=== PATIENT | female | born 1950 | race Caucasian/White ===

== ENCOUNTER 2016-07-30 10:18 | Observation (INO) | payer MEDICARE, BC ==
--- NOTE | 2016-07-30 11:02 | EDM.PDOC ---
ED HPI GENERAL MEDICAL PROBLEM - General Chief Complaint: Chest Pain Stated Complaint: CHEST PAIN Time Seen by Provider: 07/30/16 10:40 Source of Information: Reports: Patient History Limitations: Reports: No Limitations - History of Present Illness INITIAL COMMENTS - FREE TEXT/NARRATIVE: History of present illness: [66-year-old female comes in complaining of chest pressure. Patient had a history of a pericardial effusion 2 years ago and she indicates that the pressure in her chest feels the same now.] Review of systems: As per history of present illness and below otherwise all systems reviewed and negative. Past medical history: As per history of present illness and as reviewed below otherwise noncontributory. Surgical history: As per history of present illness and as reviewed below otherwise noncontributory. Social history: No reported history of drug or alcohol abuse. Family history: As per history of present illness and as reviewed below otherwise noncontributory. Physical exam: HEENT: Atraumatic, normocephalic, pupils reactive, negative for conjunctival pallor or scleral icterus, mucous membranes moist, throat clear, neck supple, nontender, trachea midline. Lungs: Clear to auscultation, breath sounds equal bilaterally, chest nontender. Heart: S1S2, regular, negative for clicks, rubs, or JVD. Abdomen: Soft, nondistended, nontender. Negative for masses or hepatosplenomegaly. Negative for costovertebral tenderness. Pelvis: Stable nontender. Genitourinary: Deferred. Rectal: Deferred. Extremities: Atraumatic, negative for cords or calf pain. Neurovascular unremarkable. Neuro: Awake, alert, oriented. Cranial nerves II through XII unremarkable. Cerebellum unremarkable. Motor and sensory unremarkable throughout. Exam nonfocal. Patient's Global assessment is benign save that as subjective complaint as noted above. CT positive for pericardial effusion Dr. Benítez the floor helper consult and patient admitted to Dr. Rogers service Diagnostics: [CBC, CMP, troponin, chest x-ray, CT of chest without contrast] Therapeutics: [IV] Impression: [Pericardial effusion] Plan: [Admit] Definitive disposition and diagnosis as appropriate pending reevaluation and review of above. chest Pain Score (Numeric/FACES): 6 - Related Data Allergies Allergy/AdvReac Type Severity Reaction Status Date / Time ampicillin Allergy Diarrhea Verified 07/30/16 10:25 clindamycin Allergy Diarrhea Verified 07/30/16 10:25 sulfamethoxazole Allergy Diarrhea Verified 07/30/16 10:25 [From Bactrim] trimethoprim [From Bactrim] Allergy Diarrhea Verified 07/30/16 10:25 dye Allergy Diarrhea Uncoded 07/30/16 10:25 Home Meds: Home Meds Citalopram [Celexa] 20 mg PO DAILY 07/30/16 [History] Liraglutide [Victoza] 1.8 mg SUBCUT DAILY 07/30/16 [History] Losartan/Hydrochlorothiazide [Losartan-HCTZ 100-25 MG] 1 tab PO DAILY 07/30/16 [ History] Montelukast [Singulair] 10 mg PO BEDTIME 07/30/16 [History] Simvastatin [Zocor] 20 mg PO BEDTIME 07/30/16 [History] SitaGLIPtin [Januvia] 100 mg PO DAILY 07/30/16 [History] glyBURIDE [Glyburide] 5 mg PO DAILY 07/30/16 [History] Past Medical History HEENT History: Reports: Impaired Vision Other HEENT History: wears glasses Cardiovascular History: Reports: High Cholesterol, Hypertension, Other (See Below) Other Cardiovascular History: pericardial effussion [employer] History: Reports: Endocrine/Metabolic History: Reports: Diabetes, Type II - Past Surgical History GI Surgical History: Reports: Appendectomy, Hernia, Abdominal, Other (See Below) Other GI Surgeries/Procedures: explor lap Musculoskeletal Surgical History: Reports: Knee Replacement Social & Family History - Family History Family Medical History: Noncontributory - Tobacco Use Smoking Status *Q: Never Smoker - Caffeine Use Caffeine Use: Reports: Coffee Caffeine Use Comment: 4 cups daily - Recreational Drug Use Recreational Drug Use: No ED ROS GENERAL - Review of Systems Review Of Systems: See Below (History of present illness) ED EXAM, GENERAL - Physical Exam Exam: See Below (See history of present illness) Course - Vital Signs Last Recorded V/S: Last Vital Signs Temp 36.6 C 07/30/16 12:16 Pulse 83 07/30/16 12:50 Resp 16 07/30/16 12:50 BP 124/69 07/30/16 12:50 Pulse Ox 96 07/30/16 12:50 - Orders/Labs/Meds Orders: Active Orders 24 hr Category Date Time Status EKG 12 Lead [EKG Documentation Completion] [RC] STAT Care 07/30/16 11:26 Active Saline Lock Insert [OM.PC] Stat Oth 07/30/16 10:36 Ordered Labs: Laboratory Tests 07/30/16 07/30/16 07/30/16 Range/Units 10:45 10:45 10:45 WBC 8.21 (4.0-11.0) K/uL RBC 4.76 (4.30-5.90) M/uL Hgb 14.2 (12.0-16.0) g/dL Hct 43.2 (36.0-46.0) % MCV 90.8 (80.0-98.0) fL MCH 29.8 (27.0-32.0) pg MCHC 32.9 (31.0-37.0) g/dL RDW Std Deviation 44.5 (28.0-62.0) fl RDW Coeff of Cynthia 14 (11.0-15.0) % Plt Count 170 (150-400) K/uL MPV 11.40 (7.40-12.00) fL Neut % (Auto) 74.7 (48.0-80.0) % Lymph % (Auto) 16.4 (16.0-40.0) % Karnes % (Auto) 8.0 (0.0-15.0) % Eos % (Auto) 0.7 (0.0-7.0) % Baso % (Auto) 0.2 (0.0-1.5) % Neut # (Auto) 6.1 H (1.4-5.7) K/uL Lymph # (Auto) 1.4 (0.6-2.4) K/uL [place] # (Auto) 0.7 (0.0-0.8) K/uL Eos # (Auto) 0.1 (0.0-0.7) K/uL Baso # (Auto) 0.0 (0.0-0.1) K/uL Nucleated RBC % 0.0 /100WBC Nucleated RBCs # 0 K/uL Sodium 138 (136-146) mmol/L Potassium 4.1 (3.5-5.1) mmol/L Chloride 104 (98-110) mmol/L Carbon Dioxide 25 (21-31) mmol/L BUN 28 H (6.0-23.0) mg/dL Creatinine 1.2 (0.6-1.5) mg/dL Est Cr Clr Drug Dosing 38.66 mL/min Estimated GFR (MDRD) 45.1 ml/min Glucose 191 H (60-110) mg/dL Calcium 9.0 (8.8-10.8) mg/dL Total Bilirubin 1.0 (0.1-1.5) mg/dL AST 21 (5-40) IU/L ALT 18 (8-54) IU/L Alkaline Phosphatase 80 (40-150) Troponin I < 0.10 (0.0-0.29) NG/ML Total Protein 7.6 (6.0-8.0) g/dL Albumin 4.3 (3.4-4.8) g/dL Globulin 3.3 (2.0-3.5) g/dL Albumin/Globulin Ratio 1.3 (1.3-2.8) Amylase 74 (10-90) U/L Lipase 52 (7-80) U/L Departure - Departure Time of Disposition: 13:56 Disposition: Admitted As Inpatient 67 Condition: good Clinical Impression: Pericardial effusion Forms: ED Department Discharge - My Orders Last 24 Hours: My Active Orders 07/30/16 10:36 Saline Lock Insert [OM.PC] Stat - Assessment/Plan Last 24 Hours: My Active Orders 07/30/16 10:36 Saline Lock Insert [OM.PC] Stat
--- NOTE | 2016-07-30 11:16 | CR ---
EXAMINATION: Two-view chest (PA and Lateral views). HISTORY: Chest pain. FINDINGS: The trachea is midline. The cardiomediastinal silhouette is within normal limits. No pulmonary infil trates, effusions or pneumothorax. Osseous structures appear unremarkable. IMPRESSION: No acute cardiopulmonary process.
--- NOTE | 2016-07-30 12:41 | CT ---
EXAMINATION: CT chest without contrast HISTORY: Chest pain COMPARISON: Radiographs dated 07/30/2016 TECHNIQUE: Axial CT images obtained through the chest without contrast. Coronal and sagittal reconst ructions obtained. FINDINGS: The lungs are clear without focal consolidation. No pleural effusion or pneumothorax. The heart is normal in size with a small pericardial effusion. No mediastinal lymphadenopathy or hilar f ullness. No axillary lymphadenopathy. There is a small hiatal hernia. Thoracic aorta is normal in ca liber. The central airways are clear. The liver demonstrates a nodular contour. Several prominent left renal cysts are noted. No suspicious osseous abnormalities identified. IMPRESSION: 1. Small pericardial effusion. 2. Otherwise no acute cardiopulmonary findings. 3. Nodular hepatic contour, correlate clinically for cirrhosis. 4. Prominent left renal cysts. 5. Small hiatal hernia.
[2016-07-30] MEDS ORDERED: Acetaminophen 325 MG Tab PO PRN (14:58)
--- NOTE | 2016-07-30 15:46 | PCM.HP ---
H&P History of Present Illness - General Date of Service: 07/30/16 Admit Problem/Dx: Admission Diagnosis/Problem Admission Diagnosis/Problem Pericardial effusion Source of Information: Patient History Limitations: Reports: No Limitations - History of Present Illness Initial Comments - Free Text/Narative: This 66 year old female with pmh of HTN, DM type 2, hyperlipidemia, and hx or pericarditis 2 years ago presented to the ED with complaints of 2 weeks of midsternal chest pressure and stabbing like pain. She reports she let this go because it felt like her pericarditis prior and thought the pain would eventually subside. This pain is a 5-6/10 intermittently worsens with taking deep breaths, it radiates to her back and left shoulder. She denies diaphoresis , nausea or vomiting. No palpitations. No recent illness or fevers at home. She reports taking aspirin at home has helped with the pain otherwise rest is the only other relieving factor. It hurts worse why lying back or changing positions. Some relief with leaning forward. She has been compliant with medications. She reports when she had pericarditis 2 years ago, she also had small amount of fluid around her heart then. She reports never following up again. In the ED CBC WNL, BUN 28, Cr 1.2, Troponin negative. Amylase and lipase normal. CXR negative. CT chest reports small pericardial effusion. HR 70s and BP 120-130/60-80s in ED. EKG no ST elevation noted, SR 70s. chest Pain Score (Numeric/FACES): 6 - Related Data Allergies/Adverse Reactions: Allergies Allergy/AdvReac Type Severity Reaction Status Date / Time ampicillin Allergy Diarrhea Verified 07/30/16 10:25 clindamycin Allergy Diarrhea Verified 07/30/16 10:25 sulfamethoxazole Allergy Diarrhea Verified 07/30/16 10:25 [From Bactrim] trimethoprim [From Bactrim] Allergy Diarrhea Verified 07/30/16 10:25 dye Allergy Diarrhea Uncoded 07/30/16 10:25 Home Medications: Home Meds Citalopram [Celexa] 20 mg PO DAILY 07/30/16 [History] Liraglutide [Victoza] 1.8 mg SUBCUT DAILY 07/30/16 [History] Losartan/Hydrochlorothiazide [Losartan-HCTZ 100-25 MG] 1 tab PO DAILY 07/30/16 [ History] Montelukast [Singulair] 10 mg PO BEDTIME 07/30/16 [History] Simvastatin [Zocor] 20 mg PO BEDTIME 07/30/16 [History] SitaGLIPtin [Januvia] 100 mg PO DAILY 07/30/16 [History] glyBURIDE [Glyburide] 5 mg PO DAILY 07/30/16 [History] Past Medical History HEENT History: Reports: Impaired Vision Other HEENT History: wears glasses Cardiovascular History: Reports: High Cholesterol, Hypertension, Other (See Below). Denies: Afib, Heart Failure, PA Other Cardiovascular History: pericardial effusion and pericarditis Respiratory History: Reports: None. 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 Denies: Hypothyroidism - Infectious Disease History Infectious Disease History: Reports: Chicken Pox - Past Surgical History GI Surgical History: Reports: Appendectomy, Hernia, Abdominal, Other (See Below) Other GI Surgeries/Procedures: explor lap Musculoskeletal Surgical History: Reports: Hip Replacement, Knee Replacement Social & Family History - Family History Family Medical History: Noncontributory - Tobacco Use Smoking Status *Q: Never Smoker - Caffeine Use Caffeine Use: Reports: Coffee Caffeine Use Comment: 4 cups daily - Alcohol Use Days Per Week of Alcohol Use: 2 Number of Drinks Per Day: 1 Total Drinks Per Week: 2 Alcohol Use Frequency: Weekly - Recreational Drug Use Recreational Drug Use: No - Living Situation & Occupation Living situation: Reports: Occupation: Employed H&P Review of Systems - Review of Systems: Review Of Systems: See Below General: Reports: No Symptoms. Denies: Fever, Chills, Malaise, Diaphoresis HEENT: Reports: No Symptoms. Denies: Headaches, Sinus Congestion, Vertigo Pulmonary: Reports: No Symptoms. Denies: Shortness of Breath, Wheezing, Cough, Sputum Cardiovascular: Reports: Chest Pain. Denies: Palpitations, Edema Gastrointestinal: Reports: No Symptoms. Denies: Abdominal Pain, Black Stool, Bloody Stool, Nausea, Vomiting Genitourinary: Reports: No Symptoms. Denies: Dysuria, Frequency, Burning Musculoskeletal: Reports: No Symptoms. Denies: Neck Pain Skin: Reports: No Symptoms Neurological: Reports: No Symptoms Immunologic: Reports: No Symptoms Exam - Exam Exam: See Below - Vital Signs Vital Signs: Last Vital Signs Temp 97.9 F 07/30/16 12:16 Pulse 80 07/30/16 14:36 Resp 16 07/30/16 14:36 BP 130/79 07/30/16 14:36 Pulse Ox 94 L 07/30/16 14:36 Weight: 82.146 kg - Exam Quality Assessment: No: Supplemental Oxygen General: Alert, Oriented, Cooperative HEENT: Conjunctiva Clear, Hearing Intact, Mucosa Moist & [place], Posterior Pharynx Clear Neck: Supple, Trachea Midline. No: Lymphadenopathy Lungs: Clear to Auscultation, Normal Respiratory Effort Cardiovascular: Regular Rate, Regular Rhythm, Rubs Extremities: 3, Normal Inspection, 10 Neuro Extensive - Mental Status: Alert, Oriented x3, Normal Mood/Affect, Normal Cognition Neuro Extensive - Motor, Sensory, Reflexes: CN II-XII Intact, Normal Gait Psychiatric: Alert, Normal Affect, Normal Mood - Patient Data Result Diagrams: 07/30/16 10:45 07/30/16 10:45 *Q Meaningful Use (ADM) - VTE *Q VTE Criteria *Q: - Stroke *Q Stroke Criteria *Q: - AMI *Q AMI Criteria *Q: - Problem List (1) Pericardial effusion SNOMED Code(s): 882254418 ICD Code: I31.3 - PERICARDIAL EFFUSION (NONINFLAMMATORY) Status: Acute Current Visit: Yes (2) HTN (hypertension) SNOMED Code(s): 44191100 ICD Code: I10 - ESSENTIAL (PRIMARY) HYPERTENSION Status: Chronic Current Visit: Yes Qualifiers: Hypertension type: essential hypertension Qualified Code(s): I10 - Essential (primary) hypertension (3) DM type 2 (diabetes mellitus, type 2) SNOMED Code(s): 22016375 ICD Code: E11.9 - TYPE 2 DIABETES MELLITUS WITHOUT COMPLICATIONS Status: Chronic Current Visit: Yes Qualifiers: Diabetes mellitus complication status: with kidney complications Diabetes mellitus complication detail: with nephropathy Diabetes mellitus care home insulin use: without care home use Qualified Code(s): E11.21 - Type 2 diabetes mellitus with diabetic nephropathy (4) Hyperlipidemia SNOMED Code(s): 65122868 ICD Code: E78.5 - HYPERLIPIDEMIA, UNSPECIFIED Status: Chronic Current Visit: Yes Qualifiers: Hyperlipidemia type: unspecified Qualified Code(s): E78.5 - Hyperlipidemia , unspecified Problem List Initiated/Reviewed/Updated: Yes Orders Last 24hrs: Active Orders 24 hr Category Date Time Status Patient Status [ADT] Routine ADT 07/30/16 14:57 Active Antiembolic Devices [RC] PER UNIT ROUTINE Care 07/30/16 14:59 Active Intake and Output [RC] QSHIFT Care 07/30/16 14:59 Active Notify Provider Consults [RC] ASDIRECTED Care 07/30/16 15:02 Active Oxygen Therapy [RC] PRN Care 07/30/16 14:58 Active Telemetry Monitoring [Cardiac Monitoring] [RC] . Care 07/30/16 15:14 Active DIRECTED Up With Assistance [RC] ASDIRECTED Care 07/30/16 14:58 Active VTE/DVT Education [RC] PER UNIT ROUTINE Care 07/30/16 14:58 Active Vital Signs [RC] Q4H Care 07/30/16 14:58 Active Consult to Physician [CONS] Routine Cons 07/30/16 14:58 Active [place] [employer] Diet [DIET] Diet 07/30/16 Dinner Active Echo 2D wo Cont [US] Urgent Exams 07/30/16 14:58 Ordered TROPONIN I [CHEM] Q6H Lab 07/30/16 16:45 Ordered TROPONIN I [CHEM] Q6H Lab 07/30/16 22:45 Ordered Acetaminophen [Tylenol] Med 07/30/16 14:58 Active 650 mg PO Q4H PRN Sequential Compression Device [OM.PC] Per Unit Routine Oth 07/30/16 14:59 Ordered Resuscitation Status Routine Resus Stat 07/30/16 14:58 Ordered Medication Orders Acetaminophen (Tylenol) 650 mg PO Q4H PRN PRN Reason: Pain Last Admin: 07/30/16 15:26 Dose: 650 mg Assessment/Plan Comment:: This 66 year old female admitted with pericarditis with pericardial effusion 1.Pericarditis with effusion: Consulted Dr. Alvarenga for recommendations. Will obtain ESR and CRP as well as ECHO. Monitor on telemetry and serial troponins. Analgesia PRN. Will plan to start an NSAIDs after consultation with Dr. Alvarenga. 2. HTN: Continue home medications 3. DM type 2: Will monitor BS TIDAC and Novolog SSI. Will hold oral medications. VTE prophylaxis: SCDs Dispo: 1-2 days pending improvement
[2016-07-30] MEDS ORDERED: Morphine 2 MG/ML Syringe IVPUSH PRN (15:48)
[2016-07-30] MEDS: Insulin Aspart 100 Units/ML 3 ML Pen SUBCUT SCH (17:25)
[2016-07-30] MEDS: Ibuprofen 600 MG Tab PO SCH (20:52)
[2016-07-30] MEDS: Colchicine 0.6 MG Tab PO SCH (20:53)
[2016-07-30] MEDS ORDERED: Montelukast 10 MG Tab PO SCH (21:00)
[2016-07-30] MEDS ORDERED: Simvastatin 20 MG Tab PO SCH (21:00)
[2016-07-30] MEDS ORDERED: Citalopram 20 MG Tab PO SCH ×2 (21:00)
[2016-07-31] MEDS: Ibuprofen 600 MG Tab PO SCH (04:29)
[2016-07-31] MEDS: Insulin Aspart 100 Units/ML 3 ML Pen SUBCUT SCH (07:23)
[2016-07-31 08:52] VITALS: BP 115/70
[2016-07-31] MEDS ORDERED: Citalopram 20 MG Tab PO SCH (09:00)
[2016-07-31] MEDS ORDERED: Hydrochlorothiazide/Losartan 12.5-50 mg Tab PO SCH (09:00)
--- NOTE | 2016-07-31 09:22 | PCM.DCSUM1 ---
Discharge Summary - Hospital Course Brief History: This 66 year old female with pmh of HTN, DM type 2, hyperlipidemia, and hx or pericarditis 2 years ago presented to the ED with complaints of 2 weeks of midsternal chest pressure and stabbing like pain. She reports she let this go because it felt like her pericarditis prior and thought the pain would eventually subside. This pain is a 5-6/10 intermittently worsens with taking deep breaths, it radiates to her back and left shoulder. She denies diaphoresis, nausea or vomiting. No palpitations. No recent illness or fevers at home. She reports taking aspirin at home has helped with the pain otherwise rest is the only other relieving factor. It hurts worse why lying back or changing positions. Some relief with leaning forward. She has been compliant with medications. She reports when she had pericarditis 2 years ago, she also had small amount of fluid around her heart then. She reports never following up again. In the ED CBC WNL, BUN 28, Cr 1.2, Troponin negative. Amylase and lipase normal. CXR negative. CT chest reports small pericardial effusion. HR 70s and BP 120-130/60-80s in ED. EKG no ST elevation noted, SR 70s. - Discharge Data Discharge Date: 07/31/16 Discharge Disposition: Home, Self-Care 01 Condition: Stable - Discharge Diagnosis/Problem(s) (1) Pericardial effusion SNOMED Code(s): 812846036 ICD Code: I31.3 - PERICARDIAL EFFUSION (NONINFLAMMATORY) Status: Acute Current Visit: Yes (2) HTN (hypertension) SNOMED Code(s): 67747508 ICD Code: I10 - ESSENTIAL (PRIMARY) HYPERTENSION Status: Chronic Current Visit: Yes Qualifiers: Hypertension type: essential hypertension Qualified Code(s): I10 - Essential (primary) hypertension (3) DM type 2 (diabetes mellitus, type 2) SNOMED Code(s): 55140864 ICD Code: E11.9 - TYPE 2 DIABETES MELLITUS WITHOUT COMPLICATIONS Status: Chronic Current Visit: Yes Qualifiers: Diabetes mellitus complication status: with kidney complications Diabetes mellitus complication detail: with nephropathy Diabetes mellitus alf insulin use: without alf use Qualified Code(s): E11.21 - Type 2 diabetes mellitus with diabetic nephropathy (4) Hyperlipidemia SNOMED Code(s): 81116483 ICD Code: E78.5 - HYPERLIPIDEMIA, UNSPECIFIED Status: Chronic Current Visit: Yes Qualifiers: Hyperlipidemia type: unspecified Qualified Code(s): E78.5 - Hyperlipidemia , unspecified - Patient Summary/Data Consults: Consultations 07/30/16 14:58 Consult to Physician [CONS] Routine - Discharge Plan Prescriptions/Med Rec: Colchicine [Colcrys] 0.6 mg PO BID #180 tablet Ibuprofen [IJD: Ibuprofen] 600 mg PO Q8H #42 tablet Home Medications: Home Meds Citalopram [Celexa] 20 mg PO DAILY 07/30/16 [History] Liraglutide [Victoza] 1.8 mg SUBCUT DAILY 07/30/16 [History] Losartan/Hydrochlorothiazide [Losartan-HCTZ 100-25 MG] 1 tab PO DAILY 07/30/16 [ History] Montelukast [Singulair] 10 mg PO BEDTIME 07/30/16 [History] Omeprazole 20 mg PO DAILY 07/30/16 [History] Simvastatin [Zocor] 20 mg PO BEDTIME 07/30/16 [History] SitaGLIPtin [Januvia] 100 mg PO DAILY 07/30/16 [History] glyBURIDE [Glyburide] 5 mg PO DAILY 07/30/16 [History] Colchicine [Colcrys] 0.6 mg PO BID #180 tablet 07/31/16 [Rx] Ibuprofen [IJD: Ibuprofen] 600 mg PO Q8H #42 tablet 07/31/16 [Rx] Patient Handouts: Pericardial Effusion, Chest Wall Pain, [id number] Referrals: Alvarado Alvarenga MD [Physician] - 08/07/16 1:00 pm - Discharge Summary/Plan Comment DC Time >30 min.: No Discharge Summary/Plan Comment: Discharge diagnoses: Pericarditis HTN DM type 2 Hx pericarditis with pericardial effusion Sherice was admitted for observation due to chest pain. ACS ruled out with negative serial troponins. ECHo completed which did not show a pericardial effusion, LV EF 65%. She was treated with NSAIDs, Ibuprofen and Colchicine. Dr. Alvarenga was consulted and visited with patient. Today she is feeling much better, chest pain is near gone. We will continue with Ibuprofen 600 mg TID for 2 weeks and Colchicine 0.6 mg BID for 3 months. I will arrange follow up with Dr. Alvarenga in 1 week as well as have her obtain labwork at that time due to elevated BUN/Cr and starting NSAIDS. She is to continue taking all home medications as previously prescribed. She is encouraged to return to the ED or clinic if concerns should arise. No strenuous activity. - General Info Date of Service: 07/31/16 Admission Dx/Problem (Free Text: Admission Diagnosis/Problem Admission Diagnosis/Problem Pericardial effusion Subjective Update: Doing well this morning. Denies chest pain and is very eager for discharge today. Functional Status: Reports: pain controlled, tolerating diet, ambulating, urinating - Review of Systems General: Reports: No Symptoms. Denies: Fever, Fatigue, Malaise HEENT: Reports: no symptoms. Denies: sinus congestion, sore throat Pulmonary: Reports: no symptoms. Denies: shortness of breath, cough, sputum Cardiovascular: Denies: No Symptoms, Chest Pain, Palpitations, Edema Gastrointestinal: Reports: No symptoms. Denies: Abdominal pain, Nausea, Vomiting - Patient Data Vitals - Most Recent: Last Vital Signs Temp 97.0 F 07/31/16 08:00 Pulse 70 07/31/16 08:00 Resp 18 07/31/16 08:00 BP 115/70 07/31/16 08:00 Pulse Ox 90 L 07/31/16 08:00 Weight - Most Recent: 82.146 kg I&O - Last 24 hours: Intake & Output 07/30/16 07/31/16 07/31/16 22:59 06:59 14:59 Intake Total 100 600 Output Total 150 1100 Balance -50 -500 Lab Results - Last 24 hrs: Laboratory Results - last 24 hr 07/30/16 07/30/16 07/31/16 Range/Units 17:19 22:38 06:43 POC Glucose 189 H (60-110) mg/dL Troponin I < 0.10 < 0.10 (0.0-0.29) NG/ML Med Orders - Current: Current Medications Acetaminophen (Tylenol) 650 mg PO Q4H PRN PRN Reason: Pain Last Admin: 07/30/16 15:26 Dose: 650 mg Citalopram Hydrobromide (Celexa) 20 mg PO BEDTIME YESSI Last Admin: 07/30/16 20:52 Dose: 20 mg Colchicine (Colcrys) 0.6 mg PO BID [facility] Last Admin: 07/30/16 20:53 Dose: 0.6 mg HCTZ/Losartan Potassium (Hyzaar 50-12.5 Mg) 2 tab PO DAILY [facility] Ibuprofen (Motrin) 600 mg PO Q8H [facility] Last Admin: 07/31/16 04:29 Dose: 600 mg Insulin Aspart (Novolog) 0 unit SUBCUT TIDAC [facility] PRN Reason: Protocol Last Admin: 07/31/16 07:23 Dose: 1 units Montelukast Sodium (Singulair) 10 mg PO BEDTIME [facility] Last Admin: 07/30/16 20:52 Dose: 10 mg Morphine Sulfate (Morphine) 2 mg IVPUSH Q4H PRN PRN Reason: Chest Pain Simvastatin (Zocor) 20 mg PO BEDTIME [facility] Last Admin: 07/30/16 20:52 Dose: 20 mg Discontinued Medications Citalopram Hydrobromide (Celexa) 20 mg PO DAILY [facility] Citalopram Hydrobromide (Celexa) 20 mg PO DAILY [facility] - Exam General: Reports: alert, oriented, cooperative, no acute distress Lungs: Reports: Clear to auscultation, Normal respiratory effort Cardiovascular: Reports: Regular Rate, Regular Rhythm. Denies: No Murmurs, Rubs Extremities: Reports: no edema, normal pulses Psy/Mental Status: Reports: alert, normal affect, normal mood *Q Meaningful Use (DIS) - VTE *Q VTE Criteria *Q: - Stroke *Q Stroke Criteria *Q: - AMI *Q AMI Criteria *Q:
[2016-07-31] MEDS: Colchicine 0.6 MG Tab PO SCH (09:25)
--- NOTE | 2016-07-31 15:11 | PCM.PN ---
- General Info Admission Dx/Problem (Free Text): 66F HTN HLP DM with chest pain most likely from pericarditis Subjective Update: she feels well, no chest pain she was walking on the hallway no further episodes of chest pain Functional Status: Reports: pain controlled - Review of Systems General: Reports: No Symptoms HEENT: Reports: no symptoms Pulmonary: Reports: no symptoms Cardiovascular: Reports: No Symptoms Gastrointestinal: Reports: No symptoms Genitourinary: Reports: no symptoms Musculoskeletal: Reports: no symptoms Skin: Reports: no symptoms Neurological: Reports: No Symptoms Psychiatric: Reports: no symptoms - Patient Data Vitals - most recent: Last Vital Signs Temp 36.1 C 07/31/16 08:00 Pulse 70 07/31/16 08:00 Resp 18 07/31/16 08:00 BP 115/70 07/31/16 08:00 Pulse Ox 90 L 07/31/16 08:00 Weight - most recent: 82.146 kg I&O - last 24 hours: Intake & Output 07/31/16 07/31/16 07/31/16 06:59 14:59 22:59 Intake Total 600 400 Output Total 1100 250 Balance -500 150 Lab Results last 24 hrs: Laboratory Results - last 24 hr 07/30/16 07/30/16 07/31/16 Range/Units 17:19 22:38 06:43 POC Glucose 189 H (60-110) mg/dL Troponin I < 0.10 < 0.10 (0.0-0.29) NG/ML Med Orders - Current: Current Medications Discontinued Medications Acetaminophen (Tylenol) 650 mg PO Q4H PRN PRN Reason: Pain Last Admin: 07/30/16 15:26 Dose: 650 mg Citalopram Hydrobromide (Celexa) 20 mg PO DAILY [facility] Citalopram Hydrobromide (Celexa) 20 mg PO DAILY [facility] Citalopram Hydrobromide (Celexa) 20 mg PO BEDTIME [facility] Last Admin: 07/30/16 20:52 Dose: 20 mg Colchicine (Colcrys) 0.6 mg PO BID [facility] Last Admin: 07/31/16 09:25 Dose: 0.6 mg HCTZ/Losartan Potassium (Hyzaar 50-12.5 Mg) 2 tab PO DAILY [facility] Last Admin: 07/31/16 09:25 Dose: 2 tab Ibuprofen (Motrin) 600 mg PO Q8H [facility] Last Admin: 07/31/16 04:29 Dose: 600 mg Insulin Aspart (Novolog) 0 unit SUBCUT TIDAC YESSI PRN Reason: Protocol Last Admin: 07/31/16 07:23 Dose: 1 units Montelukast Sodium (Singulair) 10 mg PO BEDTIME [facility] Last Admin: 07/30/16 20:52 Dose: 10 mg Morphine Sulfate (Morphine) 2 mg IVPUSH Q4H PRN PRN Reason: Chest Pain Simvastatin (Zocor) 20 mg PO BEDTIME [facility] Last Admin: 07/30/16 20:52 Dose: 20 mg - Exam General: alert HEENT: Pupils equal Neck: supple Lungs: Clear to auscultation Cardiovascular: Regular Rate Abdomen: bowel sounds present (Female) Exam: Normal External Exam Back Exam: Normal Inspection - Problem List Review Problem List Initiated/Reviewed/Updated: Yes - Plan Plan:: 66F HTN HLP DM with chest pain clinically suspicious for pericarditis 1. pericarditis: she has got ibuprofen and colchicine. She will continue ibuprofen for 2 weeks, and colchicine for 3 months 2. HTN well controlled 3. DM on medication per hospitalist
--- NOTE | 2016-08-01 09:06 | CONS ---
DATE OF CONSULTATION: DATE OF : 1950 PRIMARY CARE PHYSICIAN: Unknown PCP REASON FOR CONSULTATION: Chest pain. HISTORY OF PRESENT ILLNESS: This is a 66-year-old female, who has a history of hypertension, diabetes, and hyperlipidemia with A1c 6.6, presented to the hospital at this time because the chest pain has been going on for 2 weeks. She describes the pain as a pressure and sore at the center of her chest. Sometimes, it comes to her back or shoulders. It was coming and going. It is on and off for all day long and related to deep breath. She feels that when she takes a deep breath, the pain seemed to be worse. When she walked from the emergency room to her patient room, she started having pain as well. She was given Tylenol and the pain seemed to be subsided. EKG was negative for Q-wave or ST changes. She denied a history of URI symptoms including like fever, muscle ache, fatigue. She also had a similar symptom of chest pressure two years ago when she was in [place]. At that time, she was told that she has pericarditis and she was not sure what medication she was getting and she also is saying that she had a cardiac catheterization and she was told that she has a very mild blockage in 2015. Otherwise, she denies nausea, vomiting, abdominal pain, leg swelling, orthopnea, PND, or heart racing. She stated that her chest pain seemed to be worse when she is lying down. REVIEW OF SYSTEMS: Seemed to be negative for 12-point review of systems except indicated in HPI. PAST MEDICAL HISTORY: Including hypertension, dyslipidemia, and hyperlipidemia. ALLERGIES: She is allergic to penicillin, azithromycin, clindamycin, sulfa, and trimethoprim. FAMILY HISTORY: No family history of CAD. SOCIAL HISTORY: She denies smoking. Occasional drinking, but no drug use. PHYSICAL EXAMINATION: VITAL SIGNS: Blood pressure is 120/70, heart rate of 72, temperature 36.7, O2 saturation 92% to 98% on room air, respirations 18. HEENT: Not pale. No jaundice. No JVD. HEART: Normal S1, S2. No murmur. LUNGS: Clear. ABDOMEN: Soft, nontender. Bowel sounds present. No hepatosplenomegaly. LEGS: No edema. DIAGNOSTIC DATA: EKG showing heart rate of 74. MI interval 158, QRS duration 90, QTc interval 418. There was no MI depression and also there is no ST elevation as well. Echocardiogram prelim report; preserved ejection fraction of 55% to 60% with small pericardial fluid. CBC showed WBC 8, hematocrit of 43, hemoglobin 14, platelets 170. Sodium 138, potassium 4.1, chloride 104, bicarb 25, BUN 28, creatinine 1.2. Glucose 191. Troponin was negative x2. CRP 1.3, it was elevated. ESR 20. ASSESSMENT AND PLAN: This is a 66-year-old female with history of hypertension, hyperlipidemia, and diabetes presented to the hospital with chest pain. For her chest pain symptoms, it sounds like pericarditis pain. I do not think that she has ACS and in fact she said she had a heart cath two years ago. It seemed to be very minimal blockage and there were no EKG changes. Troponin remained negative. I would try to treat her as a pericarditis with NSAIDs and colchicine. I have recommended to start on the ibuprofen 600 three times a day for 2 weeks and colchicine 0.6 twice a day for 3 months. We will probably do some other workup to see what would be the etiology for her pericarditis such as JANES and rheumatoid factor. FOSTER / CHAVO /[id number]
--- NOTE | 2016-08-01 13:19 | ECHO ---
EXAM DATE: 07/30/16 PATIENT'S AGE: 66 The echocardiogram report can be seen in this patient's EMR (Electronic Medical Record) in the Reports section. GARRETT
== END 2016-07-31 10:45 | disposition home or self-care (01) ==
LOC: MW.ED 10:18 → MW.MS 14:23
PROVIDERS: ADMIT Internal Medicine; ATTEND Internal Medicine
DX: I31.3 Pericardial effusion (noninflammatory) (principal); I10 Essential (primary) hypertension; E11.21 Type 2 diabetes mellitus with diabetic nephropathy; E78.5 Hyperlipidemia, unspecified; E78.00 Pure hypercholesterolemia, unspecified; E66.9 Obesity, unspecified; Z79.4 Long term (current) use of insulin; Z79.84 Long term (current) use of oral hypoglycemic drugs; Z79.899 Other long term (current) drug therapy; Z88.0 Allergy status to penicillin; Z88.1 Allergy status to other antibiotic agents; Z91.041 Radiographic dye allergy status; Z96.649 Presence of unspecified artificial hip joint; Z96.659 Presence of unspecified artificial knee joint; Z90.49 Acquired absence of other specified parts of digestive tract; Z98.890 Other specified postprocedural states
CPT/HCPCS: 36415; 71020; 71250; 80053; 82150; 82962; 83690; 84484; 85025; 85652; 86140; 93005; 93306; 99285; A9270; G0378; J1815

== ENCOUNTER 2019-04-10 14:22 | Emergency (ER) | payer MEDICARE, BC ==
[2019-04-10 15:27] VITALS: BP 134/75; PULSE 72
[2019-04-10] MEDS ORDERED: Tetracaine HCl/PF 0.5% 4 ML Bottle EYEBOTH ONE (16:01)
--- NOTE | 2019-04-10 16:20 | EDM.PDOC ---
ED HPI GENERAL MEDICAL PROBLEM - General Chief Complaint: Eye Problems Stated Complaint: RIGHT EYE INJURY Time Seen by Provider: 04/10/19 16:19 Source of Information: Reports: Patient History Limitations: Reports: No Limitations - History of Present Illness INITIAL COMMENTS - FREE TEXT/NARRATIVE: HISTORY AND PHYSICAL: History of present illness: Patient is a 68-year-old female presents to the ED with complaint of scratch to her. Patient states that just prior to arrival to the ED her dog scratched her eye with his nail. She states she is having some blurred vision. She reports some discomfort to the eye. Review of systems: As per history of present illness and below otherwise all systems reviewed and negative. Past medical history: As per history of present illness and as reviewed below otherwise noncontributory. Surgical history: As per history of present illness and as reviewed below otherwise noncontributory. Social history: No reported history of drug or alcohol abuse. Family history: As per history of present illness and as reviewed below otherwise noncontributory. Physical exam: General: Patient sitting comfortably in no acute distress and nontoxic appearing HEENT: Tearing to the left eye. On fluorescein exam there is diffuse uptake in the cornea consistent with a large abrasion. Atraumatic, normocephalic, pupils reactive, negative for conjunctival pallor or scleral icterus, mucous membranes moist, throat clear, neck supple, nontender, trachea midline. No meningeal signs. Lungs: Clear to auscultation, breath sounds equal bilaterally, chest nontender. Heart: S1S2, regular, negative for clicks, rubs, or overt murmur. Abdomen: Soft, nondistended, nontender. Negative for masses or hepatosplenomegaly. Negative for costovertebral tenderness. No rigidity, rebound , guarding. Pelvis: Stable nontender. Genitourinary: Deferred. Rectal: Deferred. Extremities: Atraumatic, negative for cords or calf pain. Neurovascular unremarkable. Neuro: Awake, alert, oriented. Cranial nerves II through XII unremarkable. Cerebellum unremarkable. Motor and sensory unremarkable throughout. Exam nonfocal. Notes: Discussed with Dr. Grant, ophthalmology, he will see patient in his office tomorrow (04/11/19) and recommended patient start moxifloxacin eye drops. Diagnostics: Fluorescein stain and woodlamp exam Therapeutics: Tetracaine ophthalmic Prescriptions: moxifloxacin ophthalmic Impression: Corneal abrasion Plan: Use drops as instructed Take ibuprofen as needed for discomfort Follow-up with Dr. Grant in his office tomorrow. He will meet you there at 9 AM. Return to ED as needed as discussed Definitive disposition and diagnosis as appropriate pending reevaluation and review of above. Left Eye Pain Score (Numeric/FACES): 6 - Related Data Allergies Allergy/AdvReac Type Severity Reaction Status Date / Time ampicillin Allergy Diarrhea Verified 07/30/16 10:25 clindamycin Allergy Diarrhea Verified 07/30/16 10:25 sulfamethoxazole Allergy Diarrhea Verified 07/30/16 10:25 [From Bactrim] trimethoprim [From Bactrim] Allergy Diarrhea Verified 07/30/16 10:25 dye Allergy Diarrhea Uncoded 07/30/16 10:25 Home Meds: Home Meds Citalopram [Celexa] 20 mg PO DAILY 07/30/16 [History] Liraglutide [Victoza] 1.8 mg SUBCUT DAILY 07/30/16 [History] Losartan/Hydrochlorothiazide [Losartan-HCTZ 100-25 MG] 1 tab PO DAILY 07/30/16 [ History] Montelukast [Singulair] 10 mg PO BEDTIME 07/30/16 [History] Omeprazole 20 mg PO DAILY 07/30/16 [History] Simvastatin [Zocor] 20 mg PO BEDTIME 07/30/16 [History] SitaGLIPtin [Januvia] 100 mg PO DAILY 07/30/16 [History] glyBURIDE [Glyburide] 5 mg PO DAILY 07/30/16 [History] Colchicine [Colcrys] 0.6 mg PO BID #180 tablet 07/31/16 [Rx] Ibuprofen [IJD: Ibuprofen] 600 mg PO Q8H #42 tablet 07/31/16 [Rx] Moxifloxacin [Vigamox 0.5% Ophth Soln] 1 drop EYEBOTH TID #1 bottle 04/10/19 [Rx ] Past Medical History HEENT History: Reports: Impaired Vision Other HEENT History: wears glasses Cardiovascular History: Reports: High Cholesterol, Hypertension, Other (See Below) Other Cardiovascular History: pericardial effusion and pericarditis Respiratory History: Reports: None Gastrointestinal History: Reports: Inflammatory Bowel Disease Genitourinary History: Reports: Diabetic Nephropathy CLINICAL TRIALS ASSISTANT History: Reports: Endocrine/Metabolic History: Reports: Diabetes, Type II, Obesity/BMI 30+ - Infectious Disease History Infectious Disease History: Reports: Chicken Pox - Past Surgical History GI Surgical History: Reports: Appendectomy, Hernia, Abdominal, Other (See Below) Other GI Surgeries/Procedures: explor lap Musculoskeletal Surgical History: Reports: Hip Replacement, Knee Replacement Social & Family History - Family History Family Medical History: Noncontributory - Tobacco Use Smoking Status *Q: Never Smoker - Caffeine Use Caffeine Use: Reports: Coffee Caffeine Use Comment: 4 cups daily - Recreational Drug Use Recreational Drug Use: No - Living Situation & Occupation Living situation: Reports: Occupation: Employed ED ROS GENERAL - Review of Systems Review Of Systems: Comprehensive ROS is negative, except as noted in HPI. ED EXAM GENERAL W FULL EYE - Physical Exam Exam: See Below (see dictation) Course - Vital Signs Last Recorded V/S: Last Vital Signs Temp 98.1 F 04/10/19 15:25 Pulse 72 04/10/19 15:25 Resp 16 04/10/19 15:25 BP 134/75 04/10/19 15:25 Pulse Ox 97 04/10/19 15:25 - Orders/Labs/Meds Meds: Medications Discontinued Medications Generic Name Dose Route Start Last Admin Trade Name Freq PRN Reason Stop Dose Admin Tetracaine HCl 1 ml 04/10/19 16:01 04/10/19 17:22 Tetracaine 0.5% Steri-Unit Elaine EYEBOTH 04/10/19 16:02 1 drop ASDIRECTED ONE Administration Departure - Departure Time of Disposition: 16:23 Disposition: Home, Self-Care 01 Condition: Good Clinical Impression: Corneal abrasion, left - Discharge Information Prescriptions: Moxifloxacin [Vigamox 0.5% Ophth Soln] 1 drop EYEBOTH TID #1 bottle Instructions: Corneal Abrasion, [id number] Referrals: Ar Prado MD [Primary Care Provider] - Forms: ED Department Discharge Additional Instructions: The following information is given to patients seen in the emergency department who are being discharged to home. This information is to outline your options for follow-up care. We provide all patients seen in our emergency department with a follow-up referral. The need for follow-up, as well as the timing and circumstances, are variable depending upon the specifics of your emergency department visit. If you don't have a primary care physician on staff, we will provide you with a referral. We always advise you to contact your personal physician following an emergency department visit to inform them of the circumstance of the visit and for follow-up with them and/or the need for any referrals to a consulting specialist. The emergency department will also refer you to a specialist when appropriate. This referral assures that you have the opportunity for follow-up care with a specialist. All of these measure are taken in an effort to provide you with optimal care, which includes your follow-up. Under all circumstances we always encourage you to contact your private physician who remains a resource for coordinating your care. When calling for follow-up care, please make the office aware that this follow-up is from your recent emergency room visit. If for any reason you are refused follow-up, please contact the [facility] Department at and asked to speak to the emergency department charge nurse. [facility] [address] [place] [id number] [place] [address] Use drops as instructed Take ibuprofen as needed for discomfort Follow-up with Dr. Grant in his office tomorrow. He will meet you there at 9 AM. Return to ED as needed as discussed Sepsis Event Note - Evaluation Sepsis Screening Result: No Definite Risk - Focused Exam Date Exam was Performed: 04/11/19 Time Exam was Performed: 16:29
== END 2019-04-10 17:25 | disposition home or self-care (01) ==
LOC: MW.ED 14:22
DX: S05.02XA Injury of conjunctiva and corneal abrasion without foreign body, left eye, initial encounter (principal); W54.8XXA Other contact with dog, initial encounter
CPT/HCPCS: 99283

== ENCOUNTER 2020-06-11 09:43 | Emergency (ER) | payer MEDICARE, BC ==
[2020-06-11 09:59] VITALS: BP 140/76; PULSE 92
--- NOTE | 2020-06-11 10:10 | EDM.PDOC ---
ED HPI GENERAL MEDICAL PROBLEM - General Chief Complaint: Genitourinary Problem Stated Complaint: bladder infection Time Seen by Provider: 06/11/20 09:55 Source of Information: Reports: Patient History Limitations: Reports: No Limitations - History of Present Illness INITIAL COMMENTS - FREE TEXT/NARRATIVE: Patient is a 69-year-old female who presents today for increased urination. Patient states that this morning she woke up to urinate and felt a little stinging when she urinated. Patient states that when she was here she had to urinate so bad that she has some leak out into her underwear inside the ED. Patient mentioned that she wiped and did see some blood that was bright red. Patient otherwise denies any abdominal pain nausea vomiting fever chills or other systemic symptoms. - Related Data Allergies Allergy/AdvReac Type Severity Reaction Status Date / Time ampicillin Allergy Diarrhea Verified 06/11/20 10:00 clindamycin Allergy Diarrhea Verified 06/11/20 10:00 sulfamethoxazole Allergy Diarrhea Verified 06/11/20 10:00 [From Bactrim] trimethoprim [From Bactrim] Allergy Diarrhea Verified 06/11/20 10:00 dye Allergy Diarrhea Uncoded 06/11/20 10:00 Home Meds: Home Meds Citalopram [Celexa] 20 mg PO DAILY 07/30/16 [History] Losartan/Hydrochlorothiazide [Losartan-HCTZ 100-25 MG] 1 tab PO DAILY 07/30/16 [History] Montelukast [Singulair] 10 mg PO BEDTIME 07/30/16 [History] Simvastatin [Zocor] 20 mg PO BEDTIME 07/30/16 [History] Ibuprofen [IJD: Ibuprofen] 600 mg PO Q8H #42 tablet 07/31/16 [Rx] Ciprofloxacin HCl [Cipro] 250 mg PO BID 3 Days #6 tablet 06/11/20 [Rx] Cyclobenzaprine [Flexeril] 10 mg PO DAILY 06/11/20 [History] Esomeprazole [NexIUM] 20 mg PO DAILY 06/11/20 [History] Past Medical History HEENT History: Reports: Impaired Vision Other HEENT History: wears glasses Cardiovascular History: Reports: High Cholesterol, Hypertension, Other (See Below) Other Cardiovascular History: pericardial effusion and pericarditis Respiratory History: Reports: None Gastrointestinal History: Reports: Inflammatory Bowel Disease Genitourinary History: Reports: Diabetic Nephropathy 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: Endocrine/Metabolic History: Reports: Diabetes, Type II, Obesity/BMI 30+ - Infectious Disease History Infectious Disease History: Reports: Chicken Pox - Past Surgical History GI Surgical History: Reports: Appendectomy, Hernia, Abdominal, Other (See Below) Other GI Surgeries/Procedures: explor lap Musculoskeletal Surgical History: Reports: Hip Replacement, Knee Replacement Social & Family History - Family History Family Medical History: No Pertinent Family History - Caffeine Use Caffeine Use: Reports: None Caffeine Use Comment: 4 cups daily - Recreational Drug Use Recreational Drug Use: No - Living Situation & Occupation Living situation: Reports: Occupation: Employed ED ROS GENERAL - Review of Systems Review Of Systems: See Below Constitutional: Reports: No Symptoms HEENT: Reports: No Symptoms Respiratory: Reports: No Symptoms Cardiovascular: Reports: No Symptoms Endocrine: Reports: No Symptoms GI/Abdominal: Reports: No Symptoms : Reports: Dysuria Musculoskeletal: Reports: No Symptoms Skin: Reports: No Symptoms Neurological: Reports: No Symptoms Psychiatric: Reports: No Symptoms Hematologic/Lymphatic: Reports: No Symptoms Immunologic: Reports: No Symptoms ED EXAM, RENAL/ - Physical Exam Exam: See Below Exam Limited By: No Limitations General Appearance: Alert, WD/WN, No Apparent Distress Head: Atraumatic Respiratory/Chest: No Respiratory Distress, Lungs Clear Cardiovascular: Normal Peripheral Pulses, Regular Rate, Rhythm GI/Abdominal: Normal Bowel Sounds, Soft, Non-Tender Neurological: Alert, Oriented, Normal Cognition, Normal Gait Course - Vital Signs Last Recorded V/S: Last Vital Signs Temp 96.9 F 06/11/20 09:50 Pulse 92 06/11/20 09:50 Resp 16 06/11/20 09:50 BP 140/76 06/11/20 09:50 Pulse Ox 94 L 06/11/20 09:50 - Orders/Labs/Meds Labs: Laboratory Tests 06/11/20 06/11/20 06/11/20 Range/Units 10:21 10:21 10:21 WBC 8.85 (4.0-11.0) K/uL RBC 5.05 (4.30-5.90) M/uL Hgb 15.5 (12.0-16.0) g/dL Hct 46.4 H (36.0-46.0) % MCV 91.9 (80.0-98.0) fL MCH 30.7 (27.0-32.0) pg MCHC 33.4 (31.0-37.0) g/dL RDW Std Deviation 44.1 (28.0-62.0) fl RDW Coeff of Cynthia 13 (11.0-15.0) % Plt Count 150 (150-400) K/uL MPV 11.30 (7.40-12.00) fL Neut % (Auto) 77.3 (48.0-80.0) % Lymph % (Auto) 15.6 L (16.0-40.0) % [place] % (Auto) 6.2 (0.0-15.0) % Eos % (Auto) 0.8 (0.0-7.0) % Baso % (Auto) 0.1 (0.0-1.5) % Neut # (Auto) 6.8 H (1.4-5.7) K/uL Lymph # (Auto) 1.4 (0.6-2.4) K/uL [place] # (Auto) 0.6 (0.0-0.8) K/uL Eos # (Auto) 0.1 (0.0-0.7) K/uL Baso # (Auto) 0.0 (0.0-0.1) K/uL Nucleated RBC % 0.0 /100WBC Nucleated RBCs # 0 K/uL INR 1.10 APTT 24.6 (18.6-31.3) SEC Sodium 141 (136-145) mmol/L Potassium 4.4 (3.5-5.1) mmol/L Chloride 103 (98-107) mmol/L Carbon Dioxide 27.0 (21.0-32.0) mmol/L BUN 20 H (7.0-18.0) mg/dL Creatinine 1.4 H (0.6-1.0) mg/dL Est Cr Clr Drug Dosing 33.21 mL/min Estimated GFR (MDRD) 37.4 ml/min Glucose 177 H (74-106) mg/dL Calcium 9.3 (8.5-10.1) mg/dL Urine Color Urine Appearance Urine pH (5.0-8.0) Ur Specific [place] (1.001-1.035) Urine Protein (NEGATIVE) mg/dL Urine Glucose (UA) (NEGATIVE) mg/dL Urine Ketones (NEGATIVE) mg/dL Urine Occult Blood (NEGATIVE) Urine Nitrite (NEGATIVE) Urine Bilirubin (NEGATIVE) Urine Urobilinogen (<2.0) EU/dL Ur Leukocyte Esterase (NEGATIVE) Urine RBC (0-2/HPF) Urine WBC (0-5/HPF) Ur Epithelial Cells (NONE-FEW) Amorphous Sediment (NEGATIVE) Urine Bacteria (NEGATIVE) Urine Mucus (NONE-MOD) 06/11/20 Range/Units 10:55 WBC (4.0-11.0) K/uL RBC (4.30-5.90) M/uL Hgb (12.0-16.0) g/dL Hct (36.0-46.0) % MCV (80.0-98.0) fL MCH (27.0-32.0) pg MCHC (31.0-37.0) g/dL RDW Std Deviation (28.0-62.0) fl RDW Coeff of Cynthia (11.0-15.0) % Plt Count (150-400) K/uL MPV (7.40-12.00) fL Neut % (Auto) (48.0-80.0) % Lymph % (Auto) (16.0-40.0) % [place] % (Auto) (0.0-15.0) % Eos % (Auto) (0.0-7.0) % Baso % (Auto) (0.0-1.5) % Neut # (Auto) (1.4-5.7) K/uL Lymph # (Auto) (0.6-2.4) K/uL [place] # (Auto) (0.0-0.8) K/uL Eos # (Auto) (0.0-0.7) K/uL Baso # (Auto) (0.0-0.1) K/uL Nucleated RBC % /100WBC Nucleated RBCs # K/uL INR APTT (18.6-31.3) SEC Sodium (136-145) mmol/L Potassium (3.5-5.1) mmol/L Chloride (98-107) mmol/L Carbon Dioxide (21.0-32.0) mmol/L BUN (7.0-18.0) mg/dL Creatinine (0.6-1.0) mg/dL Est Cr Clr Drug Dosing mL/min Estimated GFR (MDRD) ml/min Glucose (74-106) mg/dL Calcium (8.5-10.1) mg/dL Urine Color YELLOW Urine Appearance CLEAR Urine pH 6.0 (5.0-8.0) Ur Specific [place] 1.010 (1.001-1.035) Urine Protein NEGATIVE (NEGATIVE) mg/dL Urine Glucose (UA) NEGATIVE (NEGATIVE) mg/dL Urine Ketones NEGATIVE (NEGATIVE) mg/dL Urine Occult Blood LARGE H (NEGATIVE) Urine Nitrite NEGATIVE (NEGATIVE) Urine Bilirubin NEGATIVE (NEGATIVE) Urine Urobilinogen 0.2 (<2.0) EU/dL Ur Leukocyte Esterase SMALL H (NEGATIVE) Urine RBC 15-20 (0-2/HPF) Urine WBC 20-25 (0-5/HPF) Ur Epithelial Cells FEW (NONE-FEW) Amorphous Sediment FEW (NEGATIVE) Urine Bacteria FEW (NEGATIVE) Urine Mucus FEW (NONE-MOD) - Re-Assessments/Exams Free Text/Narrative Re-Assessment/Exam: 06/11/20 11:25 Continue looks well and has no complaints currently. Patient will be sent home with antibiotics. Patient has a history of C. difficile. We have given patient strict return precautions. Departure - Departure Time of Disposition: 11:25 Disposition: Home, Self-Care 01 Condition: Good Clinical Impression: UTI, Urinary tract infectious disease - Discharge Information *PRESCRIPTION DRUG MONITORING PROGRAM REVIEWED*: Not Applicable *COPY OF PRESCRIPTION DRUG MONITORING REPORT IN PATIENT MAURO: Not Applicable Prescriptions: Ciprofloxacin HCl [Cipro] 250 mg PO BID 3 Days #6 tablet Instructions: Urinary Tract Infection, Adult, [id number] Referrals: PCP,None [Primary Care Provider] - Forms: ED Department Discharge Additional Instructions: The following information is given to patients seen in the emergency department who are being discharged to home. This information is to outline your options for follow-up care. We provide all patients seen in our emergency department with a follow-up referral. The need for follow-up, as well as the timing and circumstances, are variable depending upon the specifics of your emergency department visit. If you don't have a primary care physician on staff, we will provide you with a referral. We always advise you to contact your personal physician following an emergency department visit to inform them of the circumstance of the visit and for follow-up with them and/or the need for any referrals to a consulting specialist. The emergency department will also refer you to a specialist when appropriate. This referral assures that you have the opportunity for follow-up care with a specialist. All of these measure are taken in an effort to provide you with optimal care, which includes your follow-up. Under all circumstances we always encourage you to contact your private physician who remains a resource for coordinating your care. When calling for follow-up care, please make the office aware that this follow-up is from your recent emergency room visit. If for any reason you are refused follow-up, please contact the [facility] Emergency Department at and asked to speak to the emergency department charge nurse. Please follow up with your primary care physician. If you do not have a primary care physician, see below: [facility] [address] [place] [id number] My [facility] [address] [place] [id number] You were seen today for increased urination. You also mentioned some blood in your urine. There was no large amount of blood in your urine here. We will send you home with antibiotics. 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 If you develop any watery diarrhea or other symptoms please return to the ED. Sepsis Event Note (ED) - Evaluation Sepsis Screening Result: No Definite Risk - Focused Exam Vital Signs: Vital Signs Temp Pulse Resp BP Pulse Ox 06/11/20 09:50 96.9 F 92 16 140/76 94 L - Assessment/Plan Plan: Patient is a 69-year-old female who presents today for increased urination. Patient was well on exam. Will obtain UA labs and reassess.
[2020-06-11 10:44] LABS: POTASSIUM,K 4.4 mmol/L (3.5-5.1)
== END 2020-06-11 11:32 | disposition home or self-care (01) ==
LOC: MW.ED 09:43
DX: N39.0 Urinary tract infection, site not specified (principal); E78.00 Pure hypercholesterolemia, unspecified; I10 Essential (primary) hypertension; E11.21 Type 2 diabetes mellitus with diabetic nephropathy; E66.9 Obesity, unspecified; Z68.30 Body mass index [BMI] 30.0-30.9, adult; Z88.1 Allergy status to other antibiotic agents; Z88.2 Allergy status to sulfonamides; Z91.041 Radiographic dye allergy status
CPT/HCPCS: 36415; 80048; 81001; 85025; 85610; 85730; 99283

== ENCOUNTER 2021-02-26 09:01 | Day surgery (SDC) | payer MEDICARE, BC ==
[~2021-02-26 09:01] MED LIST: Lactated Ringers 1,000 ML IV SCH; cefOXitin 2 GM in Premix Bag 1 BAG IV ONE
--- NOTE | 2021-02-26 09:10 | PCM.PREANE ---
Preanesthetic Assessment - Anesthesia/Transfusion/Family Hx Anesthesia History: Prior Anesthesia Without Reaction Transfusion History: Prior Transfusion Without Reaction - Review of Systems General: No Symptoms Pulmonary: No Symptoms Cardiovascular: No Symptoms Gastrointestinal: No Symptoms Neurological: No Symptoms Other: Reports: None - Physical Assessment NPO Status Date: 02/26/21 NPO Status Time: 00:00 Height: 5 ft 4 in Weight: 178 lb ASA Class: 2 Mental Status: Alert & Oriented x3 Airway Class: Mallampati = 2 Dentition: Reports: Normal Dentition Thyro-Mental Finger Breadths: 3 Mouth Opening Finger Breadths: 3 ROM/Head Extension: Full Lungs: Clear to Auscultation, Normal Respiratory Effort Cardiovascular: Regular Rate, Regular Rhythm - Allergies Allergies/Adverse Reactions: Allergies Allergy/AdvReac Type Severity Reaction Status Date / Time Iodinated Contrast Media Allergy Hives Verified 02/20/21 10:02 ampicillin AdvReac Diarrhea Verified 02/21/21 08:58 clindamycin AdvReac Diarrhea Verified 02/21/21 08:58 erythromycin base AdvReac Diarrhea Verified 02/21/21 08:58 Penicillins AdvReac Diarrhea Verified 02/21/21 08:58 sulfamethoxazole AdvReac Diarrhea Verified 02/21/21 08:58 [From Bactrim] trimethoprim [From Bactrim] AdvReac Diarrhea Verified 02/21/21 08:58 - Acknowledgements Anesthesia Type Planned: General Anesthesia Pt an Appropriate Candidate for the Planned Anesthesia: Yes Alternatives and Risks of Anesthesia Discussed w Pt/Guardian: Yes Pt/Guardian Understands and Agrees with Anesthesia Plan: Yes PreAnesthesia Questionnaire HEENT History: Reports: Other (See Below) Other HEENT History: uses reading glasses Cardiovascular History: Reports: Heart Murmur, High Cholesterol, Hypertension, Other (See Below) Other Cardiovascular History: hx of Pericarditis x3 in the last 10 years Respiratory History: Reports: None Gastrointestinal History: Reports: Chronic Constipation, Chronic Diarrhea, Diverticulosis, GERD, Irritable Bowel Syndrome, Other (See Below) Other Gastrointestinal History: hx of C-Diff from Clindamycin Genitourinary History: Reports: None 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 Musculoskeletal History: Reports: Osteoarthritis Neurological History: Reports: Headaches, Chronic Other Neuro History: currently having chronic headaches- states from her sinuses Psychiatric History: Reports: None Endocrine/Metabolic History: Reports: Diabetes, Type II, IDDM Hematologic History: Reports: Blood Transfusion(s) Other Hematologic History: had a blood transfusion as a child when she had her appendix removed Immunologic History: Reports: None Oncologic (Cancer) History: Reports: Other (See Below) Other Oncologic History: unknown type of skin cancer removed from forehead - Infectious Disease History Infectious Disease History: Reports: Chicken Pox - Past Surgical History Head Surgeries/Procedures: Reports: None GI Surgical History: Reports: Appendectomy, Colonoscopy, Hernia, Abdominal Other GI Surgeries/Procedures: Umbilical hernia repair Female Surgical History: Reports: Other (See Below) Other Female Surgeries/Procedures: Explaratory Laparotomy for Ovarian Cyst Male Surgical History: Reports: Cystectomy Musculoskeletal Surgical History: Reports: Hip Replacement, Knee Replacement Other Musculoskeletal Surgeries/Procedures:: right TKA, Left CHARLES Dermatological Surgical History: Reports: Skin Biopsy - SUBSTANCE USE Tobacco Use Status *Q: Never Tobacco User Recreational Drug Use History: No - HOME MEDS Home Medications: Home Meds Citalopram [Celexa] 20 mg PO DAILY 07/30/16 [History] Esomeprazole [NexIUM] 20 mg PO DAILY 06/11/20 [History] Hydrochlorothiazide/Losartan [Hyzaar 100-25 MG] 1 tab PO DAILY 08/07/20 [History] Liraglutide [Victoza 2-Rashard] 1.8 mg SUBCUT QAM 08/07/20 [History] Cholecalciferol (Vitamin D3) [Vitamin D3] 400 unit PO DAILY 02/20/21 [History] Insulin NPH Hum/Reg Insulin Hm [Novolin 70-30 100 Unit/ml Vial] 24 unit SQ BID 02/20/21 [History] Losartan Potassium 50 mg PO QAM 02/20/21 [History] Simvastatin 20 mg PO DAILY 02/20/21 [History] - CURRENT (IN HOUSE) MEDS Current Meds: Current Medications Lactated Ringer's (Ringers, Lactated) 1,000 mls @ 125 mls/hr IV ASDIRECTED YESSI Discontinued Medications Cefoxitin Sodium 2 gm/ Premix 50 mls @ 100 mls/hr IV ONETIME ONE Stop: 02/26/21 07:59
[2021-02-26] MEDS ORDERED: Propofol 200 MG/20 ML SDV ONE ×2 (10:17→11:27)
--- NOTE | 2021-02-26 11:55 | PCM.OPNOTE ---
- General Post-Op/Procedure Note Date of Surgery/Procedure: 02/26/21 Operative Procedure(s): Esophagogastroduodenoscopy with gastric and distal esophageal biopsies. Colonoscopy with cold distal transverse colon polypectomy. Pre Op Diagnosis: Progressive heartburn with gastroesophageal reflux disease. Change in bowel habits with decreased stool caliber. Post-Op Diagnosis: Mild chronic gastritis and esophagitis. Distal transverse colon polyp. Pancolonic diverticulosis. Anesthesia Technique: MAC (ASA III) Primary Surgeon: New Dee Narcotics Investigator: Torin Don Condition: Good Free Text/Narrative:: DICTATION [id number] CPT CODE 25906/48001
--- NOTE | 2021-02-26 11:57 | PCM.POSTAN ---
POST ANESTHESIA ASSESSMENT - MENTAL STATUS Mental Status: Alert, Oriented - VITAL SIGNS Vital Signs: Last Vital Signs Temp 97.2 F 02/26/21 09:15 Pulse 79 02/26/21 09:15 Resp 15 02/26/21 09:15 BP 135/74 02/26/21 09:15 Pulse Ox 96 02/26/21 09:15 - RESPIRATORY Respiratory Status: Respiratory Rate WNL, Airway Patent, O2 Saturation Stable - CARDIOVASCULAR CV Status: Pulse Rate WNL, Blood Pressure Stable - GASTROINTESTINAL GI Status: No Symptoms - POST OP HYDRATION Hydration Status: Adequate & Stable
[2021-02-26] MEDS ORDERED: Lactated Ringers 1,000 ML IV SCH (12:00)
--- NOTE | 2021-02-26 12:06 | PCM48HPAN ---
Post Anesthesia Note - EVALUATION WITHIN 48HRS OF ANESTHETIC Vital Signs in Normal Range: Yes Patient Participated in Evaluation: Yes Respiratory Function Stable: Yes Airway Patent: Yes Cardiovascular Function Stable: Yes Hydration Status Stable: Yes Pain Control Satisfactory: Yes Nausea and Vomiting Control Satisfactory: Yes Mental Status Recovered: Yes Vital Signs: Last Vital Signs Temp 98.2 F 02/26/21 11:48 Pulse 96 02/26/21 11:58 Resp 14 02/26/21 11:58 BP 100/61 02/26/21 11:58 Pulse Ox 94 L 02/26/21 11:58
[2021-02-26 12:37] VITALS: BP 104/64; PULSE 92
--- NOTE | 2021-02-26 17:12 | OR ---
SURGEON: New Dee M.D. DATE OF PROCEDURE: 02/26/2021 OPERATION PERFORMED: Esophagogastroduodenoscopy with gastric and distal esophageal biopsies. PRIMARY SURGEON: New Dee M.D. VEHICLE MONITOR TECHNICIAN: HAT RENOVATOR: REGGIE Caldwell student. ANESTHESIA: MAC. ASA CLASSIFICATION: III. PREOPERATIVE DIAGNOSES: 1. Progressive heartburn. 2. Chronic gastroesophageal reflux disease. POSTOPERATIVE DIAGNOSES: 1. Mild chronic gastritis. 2. Mild distal esophagitis. DESCRIPTION OF PROCEDURE: The patient was taken to the endoscopy room and positioned on the endoscopy table in the left lateral decubitus position. Time-out was called for appropriate identification of patient and procedure. Monitored anesthesia care was provided. The bite block was placed between the patient's teeth, and the gastroscope was inserted into the bite block and into the hypopharynx and subsequently through the esophagus and stomach into the duodenum where examination was now carried out in a retrograde fashion. The duodenum showed no acute inflammatory changes or ulcerations. The stomach did show mild chronic superficial gastritis. Antral biopsies were obtained to look for Helicobacter pylori. The gastroscope was retroflexed to visualize the proximal stomach. No hiatal hernia was noted. The gastroscope was then straightened and slowly withdrawn carefully visualizing the greater and lesser curvatures. No ulcers or polyps were identified. GE junction was well defined but did show some mild inflammatory changes and separate biopsies of this area were obtained. The esophagus itself demonstrated good contractility. No mid or proximal lesions were identified. The vocal cords were briefly visualized as the scope was withdrawn. No vocal cord lesions were identified. The vocal cords did move symmetrically. The gastroscope was then removed with the patient having tolerated the procedure well. Following colonoscopy, she was taken to recovery room in stable condition. JESSICA / CHAVO /[id number]
--- NOTE | 2021-02-26 17:24 | OR ---
SURGEON: New Dee M.D. DATE OF PROCEDURE: 02/26/2021 OPERATION PERFORMED: Colonoscopy with cold distal transverse colon polypectomy. PRIMARY SURGEON: New Dee M.D. ASSISTANT DIRECTOR OF SECURITY: BRANCH LENDING MANAGER: REGGIE Caldwell student. ANESTHESIA: MAC. ASA CLASSIFICATION: III. PREOPERATIVE DIAGNOSIS: Change in bowel habits with decreased stool caliber. POSTOPERATIVE DIAGNOSES: 1. Distal transverse colon polyp. 2. Pancolonic diverticulosis. DESCRIPTION OF PROCEDURE: With the patient having completed upper GI endoscopy, she was maintained in the left lateral decubitus position. The colonoscope was inserted into the rectum and advanced with moderate difficulty to the cecum. The patient did have a redundant colon with severe pancolonic diverticulosis. The cecum was identified by internal landmarks and external pressure. Despite multiple maneuvers, I could not retroflex the scope to visualize the ascending colon from below. The colonoscope was slowly withdrawn. Diverticular changes were noted beginning in the ascending colon and continued throughout the entire length of the colon. The ascending colon, hepatic flexure, mid and proximal transverse colon showed no tumors, polyps, or inflammatory bowel disease. Again, significant diverticular changes were noted. One small polyp was encountered in the distal transverse colon and removed with cold biopsy forceps. The remainder of the transverse colon, descending colon, and sigmoid colon again showed severe diverticular changes. No stricture, spasm, or bleeding was noted, and no tumors were encountered in the lower gastrointestinal tract. Once the colonoscope was withdrawn to the rectum, it was retroflexed to visualize the anal orifice from above. No tumors or polyps were seen, and there were no acute hemorrhoidal changes. The colonoscope was then straightened, the rectum aspirated, and the colonoscope removed. The patient tolerated the procedure well and was taken to recovery room in stable condition. JESSICA / CHAVO /[id number]
== END 2021-02-26 12:22 | disposition home or self-care (01) ==
LOC: MW.SDS 09:01
PROVIDERS: ATTEND Surgery
DX: D12.3 Benign neoplasm of transverse colon (principal); K57.30 Diverticulosis of large intestine without perforation or abscess without bleeding; K31.89 Other diseases of stomach and duodenum; K21.00 Gastro-esophageal reflux disease with esophagitis, without bleeding; E78.5 Hyperlipidemia, unspecified; I10 Essential (primary) hypertension; E11.9 Type 2 diabetes mellitus without complications; Z88.1 Allergy status to other antibiotic agents; Z88.8 Allergy status to other drugs, medicaments and biological substances; Z88.0 Allergy status to penicillin; Z91.041 Radiographic dye allergy status; Z79.899 Other long term (current) drug therapy; Z79.4 Long term (current) use of insulin; Z98.890 Other specified postprocedural states
CPT/HCPCS: 43239; 45380; J2704; J7120; 00813